=== PATIENT | female | born 1950 | race Asian ===

== ENCOUNTER 2022-06-12 17:31 | Emergency (ER) | payer OTHER, SELFPAY ==
[2022-06-12 17:41] VITALS: BP 116/75; PULSE 71; RESP 18; TEMP 36.6; O2SAT 97; BMI 38.1
--- NOTE | 2022-06-12 18:10 | ED_ITS ---
HPI - Skin/Abscess/Foreign Bdy General Time Seen by Provider: 18:10 Date Seen: 06/12/22 Chief complaint: Skin/Abscess/Foreign Body Stated complaint: lump on L buttock Time Seen by Provider: 06/12/22 17:44 Source: patient, family and RN notes reviewed Mode of arrival: ambulatory Limitations: language barrier (Daughter interprets) History of Present Illness HPI narrative: Patient presents with her daughter as replenishment buyer with complaint of pain on inside of her left buttock. She has lesion there which they think is an abscess. It has been present for a couple of weeks. She has not been seen yet. Denies any fevers. Is become more painful to sit on. Denies any history of MRSA or problems with recurrent abscesses. MD complaint: abscess/boil Onset (ago): week(s) Related Data Home Medications Medication Instructions Recorded Confirmed lisinopril 20 tab 06/12/22 mg-hydrochlorothiazide 12.5 mg tablet Previous Rx's Medication Instructions Recorded cephalexin 500 mg capsule 500 mg PO BID #10 cap 06/12/22 Allergies Allergy/AdvReac Type Severity Reaction Status Date / Time No Known Drug Allergies Allergy Verified 06/12/22 17:41 Review of Systems Narrative: As per HPI Exam Const: Vital Signs, click to edit/add: Vital Signs - 24 hr 06/12/22 17:41 Temperature 97.8 F Pulse Rate [Right Pulse Oximeter] 71 Respiratory Rate 18 Blood Pressure [Ri ght Upper Arm] 116/75 Pulse Oximetry 97 Documenting provider has reviewed patient's vital signs: yes Common normals: no apparent distress General appearance: cooperative and comfortable GI: Other: Just on the inside reflection of the left gluteus but not near the rectum or vaginal area, there is a raised slightly darker pigmented area that is tender and fluctuant. Patient has pain while I palpate the area. It is about quarter size. She is consented on incision and drainage via this assistance of her daughter is the replenishment buyer. 5 mL of 1% lidocaine was drawn up and about 3 and half was used locally around the area. And let the patient rest about 10 minut es and she had good anesthesia. I sterilely prepped the skin with Betadine and then used a scalpel to open the central fluctuant area. There was a small amount of purulent discharge in a few chunks of what looked to be sebum type matter. There was not significant purulent drainage. The cavity was then explored it and bluntly dissected no no subsequent fluid collections found. Culture was obtained of the initial fluid. Small wick was placed. Reviewed with them that we wanted this wound to stay open and drain from the inside out to allow all the infection out. The understanding that if this reaccumulates or Re grows, that I would recommend seen General surgery to have the area excised out. Do wonder if this was possibly a small sebaceous cyst or some type of cyst that certainly could reoccur. Course Vital Signs Vital signs: Initial Vital Signs Temperature 97.8 F 06/12/22 17:41 Temperature Source Temporal Artery Scan 06/12/22 17:41 Pulse Rate 71 06/12/22 17:41 Respiratory Rate 18 06/12/22 17:41 Blood Pressure 116/75 06/12/22 17:41 Blood Pressure Mean 88 06/12/22 17:41 Pulse Oximetry 97 06/12/22 17:41 Oxygen Delivery Method 06/12/22 17:41 Vital Signs Temperature 97.8 F 06/12/22 17:41 Pulse Rate 71 06/12/22 17:41 Respiratory Rate 18 06/12/22 17:41 Blood Pressure 116/75 06/12/22 17:41 Pulse Oximetry 97 06/12/22 17:41 Temperature 97.8 F 06/12/22 17:41 Pulse Rate 71 06/12/22 17:41 Respiratory Rate 18 06/12/22 17:41 Blood Pressure 116/75 06/12/22 17:41 Pulse Oximetry 97 06/12/22 17:41 Critical Care Time Critical Care Time Critical Care Time: No Discharge Plan Discharge Clinical Impression: Abscess of buttock, left Patient Disposition: Home, Self-Care Condition: Stable Instructions: Abscess (ED), Abscess Incision and Drainage (DC) Additional Instructions: Allow the wick to fall out on its own. The cavity is not that deep in the workup may follow out quickly which should be fine. Can not sit in a bath tub with warm water to help keep this wound clean. Pat the area dry. There may be some drainage and small amount of bloody drainage for the next few days as this wound starts to heal. May need to use liner in your clothing to prevent blood staining. If this does start to close backup and reform assist, recommend seen General surgery for excision all removal. Short course of antibiotics is prescribed and take as the prescription states. Activity Level: Activity as Tolerated Prescriptions: New cephalexin 500 mg capsule 500 mg PO BID Qty: 10 0RF No Action lisinopril-hydrochlorothiazide 20-12.5 mg tablet 0RF Label Comments: TAKE 1 TABLET BY MOUTH EVERY DAY Follow Up/Referrals: Donavan Bob MD [Primary Care Provider] - Stand Alone Forms: LP Amina Info Instructions
== END 2022-06-12 20:01 | disposition home or self-care (01) ==
LOC: ED 19:33
PROVIDERS: Emergency Provider Family Medicine; PCP Family Medicine
DX: L02.31 Cutaneous abscess of buttock (principal)
CPT/HCPCS: 10060; 87070; 87186; 99283; 99284

== ENCOUNTER 2022-06-20 18:38 | Emergency (ER) | payer OTHER, SELFPAY ==
[2022-06-20 18:49] VITALS: BP 133/57; PULSE 64; RESP 28; TEMP 36.9; O2SAT 94; BMI 31.2
--- NOTE | 2022-06-20 19:56 | ED.GENADULT ---
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 Patient states that since Saturday she has had upper epigastric lower chest pain, there is no radiation to the pain, yesterday in the middle of the night she had 3 episodes of nausea vomiting, she had 1 episode today, patient had a cucumber prior to arrival this has helped with her nausea, pain at this time is 5/10, epigastric. She has not taken anything for it. Previous surgery was cholecystectomy. She said she had a fever yesterday, she denies any shortness of breath, dizziness or lightheadedness. The chest pain got worse after she vomited, she denies any urinary complaints, she has not had any diarrhea. She has had this in the past, she thought it was due to heartburn. No history of any CAD. She denies any smoking, alcohol use. Due to worsening pain she presents emergency department. Related Data Home Medications Medication Instructions Recorded Confirmed lisinopril 20 tab 06/12/22 mg-hydrochlorothiazide 12.5 mg tablet Previous Rx's Medication Instructions Recorded cephalexin 500 mg capsule 500 mg PO BID #10 cap 06/12/22 Allergies Allergy/AdvReac Type Severity Reaction Status Date / Time No Known Drug Allergies Allergy Verified 06/20/22 19:07 Review of Systems Status of ROS: Reports: 10 or more systems reviewed and unremarkable except as noted in History and below PFSH PFS Social History Smoking Status: Never smoker Do you use any of these nicotine containing products: None Second hand tobacco smoke exposure: No How often do you have a drink containing alcohol: never How often do you have six or more drinks on one occasion: Never AUDIT-C Alcohol total score: 0 Non-prescribed substance use: declined to answer Exam Const: Vital Signs, click to edit/add: Vital Signs - 24 hr 06/20/22 18:49 06/20/22 20:59 Temperature 98.5 F Pulse Rate [Pulse Oximeter] 64 73 Respiratory Rate 28 H 22 Blood Pressure [Le ft Upper Arm] 133/57 L 171/90 H Pulse Oximetry 94 97 Common normals: no apparent distress and oriented x3 HENMT: Common normals: normocephalic Head and scalp: normocephalic Eye: Common normals: PERRL, EOMs intact bilaterally and conjunctivae normal General eye: normal appearance of both eyes Conjunctiva: conjunctiva(e) normal Pupil: PERRL Neck & C-Spine: Common normals: full ROM, no lymphadenopathy and supple Chest: Common normals: inspection of chest normal Resp: Common normals: normal respiratory effort and clear to auscultation bilaterally Effort & inspection: able to speak in complete sentences Auscultation: clear to auscultation bilaterally GI: Common normals: Normal to inspection, nondistended, normoactive bowel sounds present and soft to palpation Palpation: soft Other: Tender to palpation the epigastric region. : Common normals: no CVA tenderness Bladder/kidney exam: no CVA tenderness Back & Pelvis: Common normals: no CVA tenderness Extremity: Other: Right hemiparesis from previous stroke. Neuro: Common normals: oriented x3 and moves all extremities Other: Right hemiparesis and mild motor aphasia Course Course Hospital Course: 7:30 PM: Vitals are stable, workup will include EKG, CBC, CRP, troponin, CMP, and lipase, will place IV peripheral, will give GI cocktail seems more epigastric based on history and physical exam, patient has a history of cholecystectomy. Less likely ACS. Seems more related to gastritis. 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 Read by myself. Lab showed no leukocytosis, CRP was negative, metabolic panel within normal limits, lipase normal. Time: 20:55 Reevaluation #2: Will obtain CT abdomen and pelvis with IV contrast to rule out any intraabdominal pathology. This was discussed with patient and daughter. 9:30 PM: due to shift change transfer of care was given to Dr. Naomi AMAYA, pending imaging, please see his note for final disposition and plan. Time: 21:09 Vital Signs Vital signs: Initial Vital Signs Temperature 98.5 F 06/20/22 18:49 Temperature Source Temporal Artery Scan 06/20/22 18:49 Pulse Rate 64 06/20/22 18:49 Pulse Rhythm 06/20/22 18:49 Respiratory Rate 28 H 06/20/22 18:49 Blood Pressure 133/57 L 06/20/22 18:49 Blood Pressure Mean 82 06/20/22 18:49 Blood Pressure Position Supine 06/20/22 18:49 Pulse Oximetry 94 06/20/22 18:49 Oxygen Delivery Method 06/20/22 18:49 Vital Signs Temperature 98.5 F 06/20/22 18:49 Pulse Rate 64 06/20/22 18:49 Respiratory Rate 28 H 06/20/22 18:49 Blood Pressure 133/57 L 06/20/22 18:49 Pulse Oximetry 94 06/20/22 18:49 Temperature 98.5 F 06/20/22 18:49 Pulse Rate 73 06/20/22 20:59 Respiratory Rate 22 06/20/22 20:59 Blood Pressure 171/90 H 06/20/22 20:59 Pulse Oximetry 97 06/20/22 20:59 Medical Decision Making Lab Data Labs: Lab Results 06/20/22 06/20/22 06/20/22 Range/Units 19:55 19:55 19:55 WBC 8.43 (4.50-11.00) K/uL RBC 5.48 H (4.00-5.20) m/uL Hgb 15.5 (12.0-16.0) gm/dL Hct 45.9 (33.0-51.0) % MCV 84 (80-100) fL MCH 28 (26-34) pg MCHC 34 (32-36) gm/dL RDW Coeff of Joaquina 12.2 (11.5-15.5) % Plt Count 237 (140-440) K/uL Neut % (Auto) 47.8 (42.0-72.0) % Lymph % (Auto) 41.2 (20-44) % [place] % (Auto) 9.0 (0.0-11.0) % Eos % (Auto) 1.7 (0.0-7.0) % Baso % (Auto) 0.1 (0.0-3.0) % Neut # (Auto) 4.03 (1.7-7.0) K/uL Lymph # (Auto) 3.47 H (0.90-2.90) K/uL [place] # (Auto) 0.80 (0.00-0.90) K/UL Eos # (Auto) 0.14 (0.00-0.50) K/uL Baso # (Auto) 0.01 (0.00-0.30) K/uL Abs Immat Gran (auto) 0.02 (0.00-0.30) K/uL Sodium 133 L (135-149) mmol/L Potassium 3.4 L (3.6-5.1) mmol/L Chloride 100 (96-114) mmol/L Carbon Dioxide 22 (20-32) mmol/L BUN 19 (7-30) mg/dL Creatinine 0.9 (0.5-1.5) mg/dL Estimated Creat Clear 35.99 Estimated GFR 68 ml/min Glucose 121 H (60-115) mg/dL Calcium 9.0 (8.4-10.6) mg/dL Total Bilirubin 1.3 (0.1-1.5) mg/dL AST 27 (12-35) U/L ALT 17 (4-35) U/L Alkaline Phosphatase 91 (40-150) U/L Troponin I < 0.01 L (0.01-0.04) ng/mL C-Reactive Protein < 0.5 L (0.5-1.0) mg/dL Total Protein 8.0 (6.0-8.3) g/dL Albumin 4.7 (3.3-5.0) g/dL Lipase 176 (23-300) U/L Discharge Plan Discharge Prescriptions: No Action lisinopril-hydrochlorothiazide 20-12.5 mg tablet 0RF Label Comments: TAKE 1 TABLET BY MOUTH EVERY DAY cephalexin 500 mg capsule 500 mg PO BID Qty: 10 0RF Follow Up/Referrals: Donavan Bob MD [Primary Care Provider] -
[2022-06-20 20:02] LABS: Basophils Absolute Auto 0.01 K/uL (0.00-0.30); Basophils Percent Auto 0.1 % (0.0-3.0); Eosinophils Absolute Auto 0.14 K/uL (0.00-0.50); Eosinophils Percent Auto 1.7 % (0.0-7.0); Hematocrit 45.9 % (33.0-51.0); Hemoglobin* 15.5 gm/dL (12.0-16.0); Immature Granulocytes Abs Auto 0.02 K/uL (0.00-0.30); Lymphocytes Absolute Auto 3.47 K/uL (0.90-2.90); Lymphocytes Percent Auto 41.2 % (20-44); Mean Corpuscular HGB Conc 34 gm/dL (32-36); Mean Corpuscular Hemoglobin 28 pg (26-34); Mean Corpuscular Volume 84 fL (80-100); Neutrophils Absolute Auto 4.03 K/uL (1.7-7.0); Neutrophils Percent Auto 47.8 % (42.0-72.0); Platelet Count* 237 K/uL (140-440); RDW Coefficient of Variation % 12.2 % (11.5-15.5); Red Blood Count 5.48 m/uL (4.00-5.20); White Blood Count* 8.43 K/uL (4.50-11.00)
[2022-06-20] MEDS: GI COCKTAIL (VISC LIDO/ANTACID) 30 ML PO (20:03)
[2022-06-20 20:15] LABS: Albumin* 4.7 g/dL (3.3-5.0); Chloride* 100 mmol/L (96-114)
[2022-06-20 20:16] LABS: Potassium* 3.4 mmol/L (3.6-5.1); Sodium* 133 mmol/L (135-149)
[2022-06-20 20:18] LABS: Creatinine* 0.9 mg/dL (0.5-1.5); Est. Creatinine Clearance* 35.99; Estimated Glomerular Filt Rate 68 ml/min
[2022-06-20 20:19] LABS: Alanine Aminotransferase* 17 U/L (4-35); Alkaline Phosphatase* 91 U/L (40-150); Aspartate Amino Transferase* 27 U/L (12-35); Bilirubin Total* 1.3 mg/dL (0.1-1.5); Blood Urea Nitrogen* 19 mg/dL (7-30); Carbon Dioxide* 22 mmol/L (20-32); Glucose* 121 mg/dL (60-115); Lipase* 176 U/L (23-300); Slide Review Reflex No
[2022-06-20 20:22] LABS: C Reactive Protein* < 0.5 mg/dL (0.5-1.0)
[2022-06-20 20:31] LABS: Troponin I* < 0.01 ng/mL (0.01-0.04)
[2022-06-20 20:59] VITALS: BP 171/90; PULSE 73; RESP 22; O2SAT 97
[2022-06-20] MEDS: 0.9 % SODIUM CHLORIDE 500 ML 500 ML IV (21:03)
[2022-06-20] MEDS: ONDANSETRON 2 MG/ML inj 4 MG IVP (21:05)
[2022-06-20] MEDS: PANTOPRAZOLE SODIUM 40 MG INJ IVP (21:06)
--- NOTE | 2022-06-20 21:06 | CRLHL7_ITS ---
For Patients: As a result of the Century Cures Act, medical imaging exams and procedure reports are released immediately into your electronic medical record. You may view this report before your referring provider. If you have questions, please contact your health care provider. INDICATION: Epigastric pain and vomiting.. TECHNIQUE: CT abdomen and pelvis acquired with 79 cc Isovue 370 IV contrast. COMPARISON: None. FINDINGS: Lower chest: Mild bibasilar atelectasis. Liver: Unremarkable. Normal in size and attenuation. No suspicious masses. Gallbladder and bile ducts: Cholecystectomy. Pancreas: Unremarkable. No mass or inflammation. Spleen: Unremarkable. Normal in size. No masses. Adrenal glands: Unremarkable. No nodules. Kidneys: Unremarkable. No suspicious masses, stones, or hydronephrosis. GI tract: Unremarkable. Normal in caliber. No sign of mass or inflammation. Normal appendix. Vasculature: Abdominal aorta is normal in caliber. Mesenteric arteries are patent. Lymph nodes: No lymphadenopathy. Peritoneum/Abdominal Wall: Unremarkable. No sign of mass or infiltration. No free air or significant free fluid. Pelvis: Unremarkable. Bones: Unremarkable for age. IMPRESSION: No acute intra-abdominal process identified. Please note that all CT scans at this facility use dose modulation, iterative reconstruction, and/or weight-based dosing when appropriate to reduce radiation dose to as low as reasonably achievable. Dictated by Zain Joyce MD @ 06/20/2022 10:40:22 PM (Electronically Signed)
[2022-06-20] MEDS: MORPHINE 4 MG/ML INJ IVP (21:10)
--- NOTE | 2022-06-20 21:26 | ED.NURSE ---
Report to [facility]HANE Vera
--- NOTE | 2022-06-20 22:37 | ED.NURSE ---
Pt up to bathroom via w/c. Pt's depends changed and pt cleaned.
== END 2022-06-20 23:19 | disposition home or self-care (01) ==
PROVIDERS: Emergency Provider Student in an Organized Health Care Education/Training Program; PCP Family Medicine
DX: K21.9 Gastro-esophageal reflux disease without esophagitis (principal)
CPT/HCPCS: 36415; 74177; 80053; 83690; 84484; 85025; 86140; 93005; 96374; 96375; 99283; 99285; A9270; C9113; J2270; J2405; J7120; Q9967

== ENCOUNTER 2023-06-18 13:46 | Outpatient (CLI) | payer OTHER, SELFPAY | END 2023-06-18 13:47 | disposition home or self-care (01) | LOC: LONREF 13:47 | PROVIDERS: PCP Family Medicine; Visit Provider Family Medicine | DX: R30.0 Dysuria (principal) | CPT/HCPCS: 87086; 87186 ==

== ENCOUNTER 2023-08-06 15:17 | Outpatient (CLI) | payer OTHER, SELFPAY | END 2023-08-06 15:18 | disposition home or self-care (01) | LOC: LONREF 15:19 | PROVIDERS: PCP Family Medicine; Visit Provider Family Medicine | DX: R10.9 Unspecified abdominal pain (principal); R35.0 Frequency of micturition | CPT/HCPCS: 87086 ==

== ENCOUNTER 2025-03-01 17:22 | Outpatient (CLI) | payer OTHER, SELFPAY | END 2025-03-01 17:23 | disposition home or self-care (01) | PROVIDERS: PCP Family Medicine; Visit Provider Physician Assistant Medical | DX: I10 Essential (primary) hypertension (principal); M81.0 Age-related osteoporosis without current pathological fracture; Z78.0 Asymptomatic menopausal state; Z13.29 Encounter for screening for other suspected endocrine disorder | CPT/HCPCS: 80061; 82306; 84443 ==

== ENCOUNTER 2025-05-24 16:24 | Outpatient (CLI) | payer OTHER, SELFPAY | END 2025-05-24 16:25 | disposition home or self-care (01) | PROVIDERS: PCP Family Medicine; Visit Provider Physician Assistant Medical | DX: M54.9 Dorsalgia, unspecified (principal); Z79.899 Other long term (current) drug therapy | CPT/HCPCS: 82607; 87086 ==